=== PATIENT | male | born 1955 | race Caucasian/White ===

== ENCOUNTER 2018-01-22 15:02 | Emergency (ER) | payer OTHER ==
[~2018-01-22] VITALS: Ht 157.5 cm; Wt 73.0 kg
[~2018-01-22 15:02] MED LIST: AMIT25; AMIT25 PO; ANORO ELLIPTA1 EACH INH; ASPI325; ASPI325EC; ASPI81CH PO; ASPI81EC; ATEN50; ATOR40TA; ATOR40TA PO; AZIT250; BISA10S PR; BUPR100 PO; CEPH500 PO; CITA20 PO; CLOP75 PO; DIAZ10 PO; DOCSEN PO; DOCU100 PO; DULO60 PO; FAMO20; GABA300 PO; HYDACE5325; HYDR1TAB94 PO; ISOMON30 PO; ISOMON60ER PO; LEVSOD112 PO; LEVSOD137 PO; LISI10; MAGCIT300 PO; METF500 PO; METO25ER PO; MIRT15 PO; MULVITA; NITR.4SL SL; NORCO 5 MG; OMEP20ER PO; OMEPRAZOLE MAGN20 MG PO; OXYACE5T PO; OXYC30 PO; OXYC30ER PO; OXYC5; Oxycodone HCl5 M1 PO; PRAV20 PO; PROACE100 PO; PROM25 PO; PROTONIX; Percocet 10-321 EACH PO; RANO500T PO; SERT50; TAMS.4ER PO; TIZANIDINE HCL4 MG PO; TRAZ50 PO; Toprol Xl25 MG PO; [UNRECOGNIZED DRUG - OTHER]; [UNRECOGNIZED DRUG - REMARK]
[2018-01-22] MEDS ORDERED: AMIT50 PO (15:15)
[2018-01-22] MEDS ORDERED: Macrodantin100 MG PO (15:17)
[2018-01-22] MEDS ORDERED: DOCU100 PO (15:18)
== END 2018-01-22 16:35 | disposition home or self-care (01) ==
LOC: ER 15:02
DX: N99.840 Postprocedural hematoma of a genitourinary system organ or structure following a genitourinary system procedure (principal); E11.9 Type 2 diabetes mellitus without complications; J44.9 Chronic obstructive pulmonary disease, unspecified; I25.10 Atherosclerotic heart disease of native coronary artery without angina pectoris; F17.210 Nicotine dependence, cigarettes, uncomplicated; Z91.048 Other nonmedicinal substance allergy status; Z79.899 Other long term (current) drug therapy
CPT/HCPCS: 99283

== ENCOUNTER 2018-12-04 11:50 | Emergency (ER) | payer MEDICARE ==
[~2018-12-04] VITALS: Ht 177.8 cm; Wt 74.8 kg
[~2018-12-04 11:50] MED LIST changes: +AMIT50 PO; +Macrodantin100 MG PO
[2018-12-04 12:26] LABS: BASOPHILS ABSOLUTE AUTO 0.02 K/mm3 (0.00-0.23); BASOPHILS PERCENT AUTO 0 % (0-2); EOSINOPHILS ABSOLUTE AUTO 0.21 K/mm3 (0.00-0.68); EOSINOPHILS PERCENT AUTO 3 % (0-6); Hematocrit 42.8 % (37.0-53.0); Hemoglobin 13.9 g/dL (13.5-17.5); IMMATURE GRAN ABSOLUTE AUTO 0.02 K/mm3 (0.00-0.10); IMMATURE GRAN PERCENT AUTO 0 % (0-1); LYMPHOCYTES PERCENT AUTO 8 % (21-46); MONOCYTES ABSOLUTE AUTO 0.64 K/mm3 (0.16-1.47); MONOCYTES PERCENT AUTO 9 % (4-13); Mean Corpuscular HGB 28.9 pg (26.0-34.0); Mean Corpuscular HGB Conc 32.5 g/dL (31.5-36.5); Mean Corpuscular Volume 89 fL (80-100); NEUTROPHILS ABSOLUTE AUTO 5.96 K/mm3 (1.96-9.15); NEUTROPHILS PERCENT AUTO 80 % (41-73); Platelet Count 306 K/mm3 (150-400); RDW Coefficient Variation 15.2 % (11.7-14.2); RDW Standard Deviation 49.7 fL (35.1-46.3); Red Blood Cell Count 4.81 M/mm3 (4.30-5.90); White Blood Cell Count 7.45 K/mm3 (4.00-11.30)
[2018-12-04 12:38] LABS: Albumin, Blood 2.8 g/dL (3.4-5.0); Albumin/Globulin Ratio 0.6 (0.8-1.8); Bilirubin, Total 0.3 mg/dL (0.1-1.0); Bun/Creatinine Ratio 29.3 (12.0-20.0); Calcium, Blood 8.7 mg/dL (8.5-10.1); Creatinine, Blood 1.91 mg/dL (0.60-1.20); Globulin, Blood 4.7 g/dL (2.2-4.0); Potassium, Blood 3.7 mmol/L (3.5-5.5); Total Protein, Blood 7.5 g/dL (6.4-8.2)
[2018-12-04] MEDS ORDERED: ONDA4ODT MM (13:43)
== END 2018-12-04 15:45 | disposition home or self-care (01) ==
LOC: ER 11:50
PROVIDERS: Emergency Medicine
DX: E86.0 Dehydration (principal); R11.2 Nausea with vomiting, unspecified; J44.9 Chronic obstructive pulmonary disease, unspecified; E11.9 Type 2 diabetes mellitus without complications; F17.210 Nicotine dependence, cigarettes, uncomplicated
CPT/HCPCS: 80053; 83690; 85025; 99284; J7120

== ENCOUNTER 2019-04-21 14:57 | Day surgery (SDC) | payer MEDICARE ==
[~2019-04-21 14:57] MED LIST changes: +ONDA4ODT MM
== END 2019-04-21 22:57 | disposition home or self-care (01) ==
LOC: US 14:57
DX: C49.0 Malignant neoplasm of connective and soft tissue of head, face and neck (principal); C67.9 Malignant neoplasm of bladder, unspecified
CPT/HCPCS: 38505; 76942; 88305; 88341; 88342